=== PATIENT | male | born 1945 | race Caucasian/White ===

== ENCOUNTER → 2016-03-25 | Outpatient (CLI) | payer MEDICARE, BC ==
[~2016-03-25] MED LIST: COUMADIN7.5 MG PO; FLECAINIDE ACET50 MG PO; METOPROLOL SUCC25 M1 PO; TOPROL XL100 MG PO
[2016-03-25 14:33] VITALS: BP 152/92
== END ==
LOC: AMSURD 14:24
DX: J00 Acute nasopharyngitis [common cold] (principal); I48.0 Paroxysmal atrial fibrillation; I10 Essential (primary) hypertension

== ENCOUNTER → 2016-04-06 | Outpatient (CLI) | payer MEDICARE, BC | LOC: VAS 16:27 | DX: I48.0 Paroxysmal atrial fibrillation (principal); I10 Essential (primary) hypertension; I34.0 Nonrheumatic mitral (valve) insufficiency; I35.1 Nonrheumatic aortic (valve) insufficiency ==

== ENCOUNTER → 2016-04-09 | Outpatient (CLI) | payer MEDICARE, BC | LOC: LAB 07:56 | DX: I48.91 Unspecified atrial fibrillation (principal); I10 Essential (primary) hypertension; R06.83 Snoring ==

== ENCOUNTER → 2016-04-13 | Outpatient (CLI) | payer MEDICARE, BC | LOC: LAB 10:29 | DX: Z51.81 Encounter for therapeutic drug level monitoring (principal); Z79.01 Long term (current) use of anticoagulants; I48.91 Unspecified atrial fibrillation ==

== ENCOUNTER → 2016-04-21 | Outpatient (CLI) | payer MEDICARE, BC | LOC: LAB 10:26 | DX: Z51.81 Encounter for therapeutic drug level monitoring (principal); Z79.01 Long term (current) use of anticoagulants; I48.91 Unspecified atrial fibrillation ==

== ENCOUNTER → 2016-04-28 | Outpatient (CLI) | payer MEDICARE, BC | LOC: LAB 10:39 | DX: Z51.81 Encounter for therapeutic drug level monitoring (principal); Z79.01 Long term (current) use of anticoagulants; I48.91 Unspecified atrial fibrillation ==

== ENCOUNTER → 2016-05-03 | Outpatient (CLI) | payer MEDICARE, BC | LOC: LAB 08:59 | DX: I48.91 Unspecified atrial fibrillation (principal) ==

== ENCOUNTER → 2016-05-10 | Outpatient (CLI) | payer MEDICARE, BC ==
[2016-05-10 10:45] VITALS: BP 126/83
== END ==
LOC: AMSURD 10:26
DX: I10 Essential (primary) hypertension (principal); I48.91 Unspecified atrial fibrillation

== ENCOUNTER → 2016-05-17 | Outpatient (CLI) | payer MEDICARE, BC | LOC: LAB 09:25 | DX: Z79.01 Long term (current) use of anticoagulants (principal); Z51.81 Encounter for therapeutic drug level monitoring; I48.91 Unspecified atrial fibrillation ==

== ENCOUNTER → 2016-05-20 | Outpatient (CLI) | payer MEDICARE, BC ==
[2016-05-20 10:40] VITALS: BP 111/74
== END ==
LOC: AMSURD 10:34
DX: I48.91 Unspecified atrial fibrillation (principal)

== ENCOUNTER → 2016-05-24 | Outpatient (CLI) | payer MEDICARE, BC | LOC: LAB 10:45 | DX: I48.91 Unspecified atrial fibrillation (principal); J06.9 Acute upper respiratory infection, unspecified; R05 Cough ==

== ENCOUNTER → 2016-06-03 | Outpatient (CLI) | payer MEDICARE, BC ==
[2016-06-03 10:14] VITALS: BP 129/93
--- NOTE | 2016-06-03 10:22 | NUR ---
EKG RESULT FAXED TO DR GILES PER ORDER. COPY ALSO GIVEN TO DR AHMADI PER PATIENT REQUEST.
== END ==
LOC: AMSURD 10:08
DX: I48.91 Unspecified atrial fibrillation (principal)

== ENCOUNTER → 2016-06-04 | Outpatient (CLI) | payer MEDICARE, BC | LOC: LAB 08:19 | DX: Z51.81 Encounter for therapeutic drug level monitoring (principal); Z79.01 Long term (current) use of anticoagulants; I48.91 Unspecified atrial fibrillation ==

== ENCOUNTER → 2016-06-05 | Outpatient (CLI) | payer MEDICARE, BC | LOC: LAB 09:28 | DX: Z51.81 Encounter for therapeutic drug level monitoring (principal); Z79.01 Long term (current) use of anticoagulants; I48.91 Unspecified atrial fibrillation ==

== ENCOUNTER → 2016-06-09 | Outpatient (CLI) | payer MEDICARE, BC | LOC: LAB 09:47 | DX: Z51.81 Encounter for therapeutic drug level monitoring (principal); Z79.01 Long term (current) use of anticoagulants; I48.91 Unspecified atrial fibrillation ==

== ENCOUNTER → 2016-06-10 | Outpatient (CLI) | payer MEDICARE, BC | LOC: LAB 08:58 | DX: Z51.81 Encounter for therapeutic drug level monitoring (principal); Z79.01 Long term (current) use of anticoagulants; I48.91 Unspecified atrial fibrillation ==

== ENCOUNTER → 2016-06-14 | Outpatient (CLI) | payer MEDICARE, BC | LOC: LAB 09:04 | DX: Z51.81 Encounter for therapeutic drug level monitoring (principal); Z79.01 Long term (current) use of anticoagulants; I48.91 Unspecified atrial fibrillation ==

== ENCOUNTER → 2016-06-16 | Outpatient (CLI) | payer MEDICARE, BC | LOC: LAB 09:58 | DX: Z51.81 Encounter for therapeutic drug level monitoring (principal); Z79.01 Long term (current) use of anticoagulants; I48.91 Unspecified atrial fibrillation ==

== ENCOUNTER → 2016-06-24 | Outpatient (CLI) | payer MEDICARE, BC ==
[2016-06-03 10:14] VITALS: BP 129/93
== END ==
LOC: LAB 08:58
DX: Z51.81 Encounter for therapeutic drug level monitoring (principal); Z79.01 Long term (current) use of anticoagulants; I48.91 Unspecified atrial fibrillation

== ENCOUNTER → 2016-07-01 | Outpatient (CLI) | payer MEDICARE, BC ==
[2016-06-03 10:14] VITALS: BP 129/93
== END ==
LOC: LAB 09:24
DX: Z51.81 Encounter for therapeutic drug level monitoring (principal); Z79.01 Long term (current) use of anticoagulants; I48.91 Unspecified atrial fibrillation

== ENCOUNTER → 2016-07-08 | Outpatient (CLI) | payer MEDICARE, BC ==
[2016-06-03 10:14] VITALS: BP 129/93
== END ==
LOC: LAB 09:40
DX: Z51.81 Encounter for therapeutic drug level monitoring (principal); Z79.01 Long term (current) use of anticoagulants; I48.91 Unspecified atrial fibrillation

== ENCOUNTER → 2016-07-09 | Outpatient (CLI) | payer MEDICARE, BC ==
[2016-06-03 10:14] VITALS: BP 129/93
== END ==
LOC: CARDREHAB 08:53
DX: R06.09 Other forms of dyspnea (principal); I10 Essential (primary) hypertension; I48.0 Paroxysmal atrial fibrillation; I48.91 Unspecified atrial fibrillation
CPT/HCPCS: A9500

== ENCOUNTER → 2016-07-15 | Outpatient (CLI) | payer MEDICARE, BC ==
[2016-06-03 10:14] VITALS: BP 129/93
== END ==
LOC: LAB 09:25
DX: Z51.81 Encounter for therapeutic drug level monitoring (principal); Z79.01 Long term (current) use of anticoagulants; I48.91 Unspecified atrial fibrillation

== ENCOUNTER → 2016-09-01 | Outpatient (CLI) | payer MEDICARE, BC ==
[2016-06-03 10:14] VITALS: BP 129/93
== END ==
LOC: LAB 08:28
DX: I10 Essential (primary) hypertension (principal); Z12.5 Encounter for screening for malignant neoplasm of prostate; I48.2 Chronic atrial fibrillation; R73.09 Other abnormal glucose; Z13.6 Encounter for screening for cardiovascular disorders; Z12.12 Encounter for screening for malignant neoplasm of rectum; Z11.9 Encounter for screening for infectious and parasitic diseases, unspecified

== ENCOUNTER → 2016-11-04 | Outpatient (CLI) | payer MEDICARE, BC ==
[2016-06-03 10:14] VITALS: BP 129/93
== END ==
LOC: LAB 15:48
DX: I10 Essential (primary) hypertension (principal); Z12.12 Encounter for screening for malignant neoplasm of rectum; Z12.5 Encounter for screening for malignant neoplasm of prostate

== ENCOUNTER → 2017-05-02 | Outpatient (CLI) | payer MEDICARE, BC ==
[~2017-05-02] VITALS: Ht 193 cm; Wt 98.6 kg
[~2017-05-02] MED LIST changes: +LOPRESSOR 225 MG/TAB PO
[2017-05-02 09:57] VITALS: BP 138/85
== END ==
LOC: AMSURD 09:41
DX: I48.0 Paroxysmal atrial fibrillation (principal)

== ENCOUNTER → 2017-10-05 | Outpatient (CLI) | payer MEDICARE, BC ==
[2017-05-02 09:57] VITALS: BP 138/85
[2017-10-05 09:35] LABS: ALBUMIN 3.8 g/dL (3.5-5.0); BUN/CREATININE RATIO 22.2 (6.0-26.0); CALCIUM 8.7 mg/dL (8.4-10.2); POTASSIUM 4.2 mmol/L (3.6-5.0); TOTAL BILIRUBIN 0.7 mg/dL (0.2-1.3)
== END ==
LOC: LAB 08:54
PROVIDERS: Family Medicine
DX: Z12.5 Encounter for screening for malignant neoplasm of prostate (principal); Z13.6 Encounter for screening for cardiovascular disorders; I10 Essential (primary) hypertension; I48.91 Unspecified atrial fibrillation; R73.09 Other abnormal glucose

== ENCOUNTER → 2018-06-23 | Outpatient (CLI) | payer MEDICARE, BC ==
[~2018-06-23] VITALS: Ht 193 cm; Wt 100.0 kg
[~2018-06-23] MED LIST changes: +AMBIEN5 M1 PO; +COLACE100 M1 PO; +COUMADIN 5MG5 MG/TAB PO; +TOPROL XL 25MG25 MG PO
[2018-06-23 14:25] VITALS: BP 143/79
== END ==
LOC: AMSURD 14:05
DX: I48.0 Paroxysmal atrial fibrillation (principal)

== ENCOUNTER → 2019-10-16 | Outpatient (CLI) | payer MEDICARE, BC ==
[2018-06-23 14:25] VITALS: BP 143/79
== END ==
LOC: AMSURD 11:26
DX: I48.0 Paroxysmal atrial fibrillation (principal)

== ENCOUNTER → 2019-10-22 | Outpatient (CLI) | payer MEDICARE, BC ==
[2018-06-23 14:25] VITALS: BP 143/79
[2019-10-22 07:52] LABS: ALBUMIN 3.9 g/dL (3.4-4.8)
[2019-10-22 07:54] LABS: TOTAL PROTEIN 7.2 g/dL (6.2-8.1)
[2019-10-22 07:56] LABS: TOTAL BILIRUBIN 0.5 mg/dL (0.2-1.2)
[2019-10-22 08:09] LABS: POTASSIUM 4.7 mmol/L (3.5-5.1)
[2019-10-22 08:10] LABS: CALCIUM 9.1 mg/dL (8.3-10.5)
== END ==
LOC: LAB 07:27
PROVIDERS: Family Medicine
DX: I48.91 Unspecified atrial fibrillation (principal); G47.33 Obstructive sleep apnea (adult) (pediatric); I10 Essential (primary) hypertension

== ENCOUNTER → 2020-03-03 | Outpatient (CLI) | payer MEDICARE, BC ==
[2018-06-23 14:25] VITALS: BP 143/79
[2020-03-03 10:27] LABS: ALBUMIN 3.7 g/dL (3.4-4.8)
[2020-03-03 10:29] LABS: TOTAL PROTEIN 6.6 g/dL (6.2-8.1)
[2020-03-03 10:31] LABS: TOTAL BILIRUBIN 0.7 mg/dL (0.2-1.2)
[2020-03-03 10:35] LABS: DIRECT BILIRUBIN 0.3 mg/dL (0.0-0.5)
== END ==
LOC: LAB 09:38
PROVIDERS: Family Medicine
DX: E78.5 Hyperlipidemia, unspecified (principal)

== ENCOUNTER → 2020-05-28 | Outpatient (CLI) | payer MEDICARE, BC ==
[2018-06-23 14:25] VITALS: BP 143/79
== END ==
LOC: LAB 12:28
DX: N39.0 Urinary tract infection, site not specified (principal)

== ENCOUNTER → 2020-06-10 | Outpatient (CLI) | payer MEDICARE, BC ==
[2018-06-23 14:25] VITALS: BP 143/79
[2020-06-10 13:47] LABS: URINE APPEARANCE HAZY; URINE COLOR YELLOW
[2020-06-10 13:48] LABS: URINE BILIRUBIN NEGATIVE (NEGATIVE); URINE BLOOD NEGATIVE (NEGATIVE); URINE GLUCOSE NEGATIVE (NEGATIVE); URINE KETONE NEGATIVE (NEGATIVE); URINE LEUKOCYTE ESTERASE NEGATIVE (NEGATIVE); URINE NITRATE NEGATIVE (NEGATIVE); URINE PROTEIN(semi-quant) NEGATIVE (NEGATIVE); URINE UROBILINOGEN NORMAL (NORMAL)
== END ==
LOC: LAB 10:27
PROVIDERS: Family Medicine
DX: N39.0 Urinary tract infection, site not specified (principal)

== ENCOUNTER → 2020-11-26 | Outpatient (CLI) | payer MEDICARE, BC ==
[2020-11-26 08:38] LABS: ALBUMIN 3.7 g/dL (3.4-4.8); POTASSIUM 4.4 mmol/L (3.5-5.1)
[2020-11-26 08:39] LABS: CALCIUM 9.4 mg/dL (8.3-10.5)
[2020-11-26 08:40] LABS: TOTAL PROTEIN 6.8 g/dL (6.2-8.1)
[2020-11-26 08:42] LABS: TOTAL BILIRUBIN 0.6 mg/dL (0.2-1.2)
== END ==
LOC: LAB 08:13
PROVIDERS: Family Medicine
DX: E78.5 Hyperlipidemia, unspecified (principal); R74.01 Elevation of levels of liver transaminase levels

== ENCOUNTER → 2021-01-08 | Day surgery (SDC) | payer MEDICARE, BC | LOC: MSO 07:34 | DX: Z12.11 Encounter for screening for malignant neoplasm of colon (principal); D12.0 Benign neoplasm of cecum; K57.30 Diverticulosis of large intestine without perforation or abscess without bleeding; I10 Essential (primary) hypertension; I48.0 Paroxysmal atrial fibrillation; E78.5 Hyperlipidemia, unspecified; G47.33 Obstructive sleep apnea (adult) (pediatric); Z79.899 Other long term (current) drug therapy | CPT/HCPCS: 00811; J2704; J7120 ==

== ENCOUNTER → 2021-01-14 | Outpatient (CLI) | payer MEDICARE, BC | LOC: RAD 09:07 | DX: I48.91 Unspecified atrial fibrillation (principal); I45.10 Unspecified right bundle-branch block; I44.4 Left anterior fascicular block; K59.00 Constipation, unspecified ==

== ENCOUNTER → 2021-03-03 | Outpatient (CLI) | payer MEDICARE, BC | LOC: LAB 08:38 | DX: Z12.5 Encounter for screening for malignant neoplasm of prostate (principal); E78.5 Hyperlipidemia, unspecified; E74.01 von Gierke disease ==

== ENCOUNTER → 2022-01-18 | Outpatient (CLI) | payer MEDICARE, BC ==
[2022-01-18 09:25] LABS: ALBUMIN 3.7 g/dL (3.4-4.8); POTASSIUM 4.4 mmol/L (3.5-5.1)
[2022-01-18 09:26] LABS: CALCIUM 9.5 mg/dL (8.3-10.5)
[2022-01-18 09:27] LABS: TOTAL PROTEIN 6.6 g/dL (6.2-8.1)
[2022-01-18 09:29] LABS: TOTAL BILIRUBIN 0.6 mg/dL (0.2-1.2)
== END ==
LOC: LAB 09:02
PROVIDERS: Family Medicine
DX: E78.5 Hyperlipidemia, unspecified (principal); R74.01 Elevation of levels of liver transaminase levels

== ENCOUNTER → 2022-01-25 | Outpatient (CLI) | payer MEDICARE, BC | LOC: RAD 09:57 | DX: G47.33 Obstructive sleep apnea (adult) (pediatric) (principal); R05.9 Cough, unspecified; R06.00 Dyspnea, unspecified; W31.9XXD Contact with unspecified machinery, subsequent encounter ==

== ENCOUNTER → 2023-03-10 | Outpatient (CLI) | payer MEDICARE, BC ==
[2023-03-10 09:08] LABS: CALCIUM 9.1 mg/dL (8.3-10.5)
== END ==
LOC: LAB 08:46
PROVIDERS: Family Medicine
DX: Z00.00 Encounter for general adult medical examination without abnormal findings (principal); Z12.5 Encounter for screening for malignant neoplasm of prostate; I48.0 Paroxysmal atrial fibrillation; E78.2 Mixed hyperlipidemia

== ENCOUNTER 2023-09-14 16:00 | Emergency (ER) | payer MEDICARE, BC ==
[~2023-09-14] VITALS: Ht 193 cm; Wt 90.0 kg
[~2023-09-14 16:00] MED LIST changes: +ASPIRIN 81M81 MG/TA2 PO; +SIMVASTATIN20 M1 PO
[2023-09-14 16:34] LABS: BASO # 0.04 K/mm3 (0.02-0.10); EOS # 0.12 K/mm3 (0.04-0.40); EOS % 2.1 % (0.0-4.0); HEMATOCRIT 34.5 % (42.0-52.0); HEMOGLOBIN 10.7 g/dL (13.5-18.0); LYMPH# 1.57 K/mm3 (1.50-4.00); MEAN CELL VOLUME 98 fl (78-100); MEAN CORPUSCULAR HEMOGLOBIN 30 pg (27-31); MEAN CORPUSCULAR HGB CONC 31 g/dL (33-37); MEAN PLATELET VOLUME 9.3 fl (7.4-10.4); MONO # 0.56 K/mm3 (0.20-0.80); NEU # 3.48 K/mm3 (1.40-6.50); PLATELET COUNT 367 K/mm3 (130-400); RED BLOOD COUNT 3.52 M/mm3 (4.20-5.60); RED CELL DISTRIBUTION WIDTH 13.1 % (11.5-14.5); WHITE BLOOD COUNT 5.8 K/mm3 (4.8-10.8)
[2023-09-14 16:40] LABS: ALBUMIN 3.8 g/dL (3.4-4.8); SODIUM 139 mmol/L (136-145)
[2023-09-14 16:42] LABS: CALCIUM 9.1 mg/dL (8.3-10.5)
[2023-09-14 16:43] LABS: GLUCOSE 152 mg/dL (75-110)
[2023-09-14 16:44] LABS: CARBON DIOXIDE 23 mmol/L (23-31)
[2023-09-14 16:45] LABS: TOTAL BILIRUBIN 0.3 mg/dL (0.2-1.2)
[2023-09-14] MEDS ORDERED: Metoprolol Tartrate 1 MG/ML 5 ML VIAL IV ONE (16:45)
[2023-09-14 16:48] LABS: AST-SGOT 49 U/L (5-34)
[2023-09-14 16:49] LABS: ALT/SGPT 17 U/L (0-55)
[2023-09-14 16:56] LABS: TROPONIN-I < 0.030 ng/mL (0.00-0.033)
[2023-09-14 17:05] LABS: D-DIMER 15.08 mg/L FEU (0.15-0.50)
[2023-09-14] MEDS ORDERED: Iohexol 350 - 100 ML VIAL IV ONE (17:39)
[2023-09-14] MEDS ORDERED: ELIQUIS5 M1 PO (18:23)
[2023-09-14] MEDS ORDERED: Apixaban 5 MG TABLET PO ONE (18:30)
[2023-09-14 18:38] VITALS: BP 131/77
== END 2023-09-14 18:45 | disposition home or self-care (01) ==
LOC: ED 16:00
DX: I48.91 Unspecified atrial fibrillation (principal); I26.99 Other pulmonary embolism without acute cor pulmonale; S30.1XXA Contusion of abdominal wall, initial encounter; X58.XXXA Exposure to other specified factors, initial encounter
CPT/HCPCS: Q9967

== ENCOUNTER → 2023-09-27 | Outpatient (CLI) | payer MEDICARE, BC ==
[~2023-09-27] MED LIST changes: +ELIQUIS5 M1 PO
== END ==
LOC: VAS 09:43 → RAD 10:00
DX: I26.99 Other pulmonary embolism without acute cor pulmonale (principal)

== ENCOUNTER → 2024-04-16 | Day surgery (SDC) | payer MEDICARE, BC ==
[~2024-04-16] MED LIST changes: +fentaNYL 100 MCG/2 ML VIAL ONE
== END | disposition home or self-care (01) ==
LOC: MSO 10:17
DX: Z12.11 Encounter for screening for malignant neoplasm of colon (principal); Z86.0101 Personal history of adenomatous and serrated colon polyps; Z79.82 Long term (current) use of aspirin; G47.33 Obstructive sleep apnea (adult) (pediatric)
CPT/HCPCS: 00812; J2704; J3010; J7120

== ENCOUNTER → 2024-05-30 | Outpatient (CLI) | payer MEDICARE, BC ==
[~2024-05-30] MED LIST changes: -fentaNYL 100 MCG/2 ML VIAL ONE
== END ==
LOC: RAD 14:44
DX: S90.122A Contusion of left lesser toe(s) without damage to nail, initial encounter (principal); X58.XXXA Exposure to other specified factors, initial encounter

== ENCOUNTER → 2024-06-23 | Outpatient (CLI) | payer MEDICARE, BC | LOC: RAD 07:11 | DX: I77.810 Thoracic aortic ectasia (principal) ==